=== PATIENT | male | born 1980 | race Hispanic/Latino ===

== ENCOUNTER 2016-06-11 12:45 | Emergency (ER) | payer OTHER ==
[2016-06-11 12:53] VITALS: BP 125/72; PULSE 79; RESP 20; O2SAT 98
--- NOTE | 2016-06-11 13:50 | ED.REPORT ---
HPI-Rash / Abscess Date of Service Jun 11, 2016 ED Provider: Maciej Alejandre MD A healthy 36 year old male presents to the ED from Urgent Care with right eye pain, redness, and swelling onset five days ago. At onset he was sweeping the floor at work when sawdust blew into his eye. He also reports chills and generalized myalgias today. Two days ago he was seen in clinic and was prescribed antibiotics. His symptoms have not improved since then. He denies nausea, vomiting, fever, or shortness of breath. He does not wear glasses or contacts. Nursing Notes Stated Complaint: POSSIBLE RIGHT EYE INFECTION/SENT FROM Chief Complaint: Eye Nursing Notes Reviewed: Yes Allergies: Coded Allergies: No Known Allergies (Unverified , 06/11/16) General Time Seen by MD: 13:50 Chief Complaint Other (Eye Pain, Redness, and Swelling) Hx Obtained From: Patient Arrived By: Walk-in Onset Occurred: 5 days ago Symptom Duration: Since onset Location: : Head/face (Eyes) Quality: Painful Severity: Current: Moderate Severity: Maximum: Moderate Associated with: Denies Fever Pertinent Negative: Relieved by nothing Recent Healthcare: Recent doctor visit Similar Sx Previous: No Past Medical History Past Medical History None reported Past Surgical History None reported Smoking History Unknown if Ever Smoker Ambulatory Status Independent Review of Systems Constitutional: Reports: Chills, Denies: Fever Eyes: Reports: Eye pain right, Redness right (and swelling) Respiratory: Denies: Shortness of breath GI: Denies: Nausea, Vomiting Musculoskeletal: Reports: Myalgia (Generalized) Physical Exam Physical Exam Notes: Initial Vital Signs Vital Signs (First) Date Time Temp Pulse Resp B/P Pulse Ox O2 Delivery O2 Flow Rate FiO2 06/11/16 12:53 37.3 79 20 125/72 98 Room Air Initial VS: Reviewed Neck: Supple, Full range of motion Respiratory: Breath sounds normal, Clear to auscultation, No respiratory distress Cardiovascular: Regular rate & rhythm, Heart sounds normal Neurologic: Alert, Oriented, Nonfocal Psychiatric: Mood/affect normal, Behavior normal, Normal thought content General/Constitutional: Awake, Alert Skin: Warm, Dry Head / Eyes: Atraumatic, Normocephalic, PERRL Acuity / Tonometry: Positive: Visual acuity abnormal R (20/80) Eye Movement: Positive: EOM painful Conjunctiva / Sclera: Positive: Chemosis R Right conjunctiva erythematous and swollen Right upper outer eyelid also significantly swollen with small that of purulent drainage. Interpretation & Diagnostics Lab Results Interpretation Result Diagram: 06/11/16 1500 06/11/16 1500 Test 06/11/16 15:00 White Blood Count 11.3th/mm3 (3.8-10.1) Red Blood Count 5.08mil/mm3 (4.40-5.80) Hemoglobin 14.9g/dL (13.8-17.2) Hematocrit 43.0% (41.0-50.0) Mean Corpuscular Volume 84.6fL (81-100) Mean Corpuscular Hemoglobin 29.3pg (27.0-35.0) Mean Corpuscular Hemoglobin Concent 34.7% (32.0-37.0) Red Cell Distribution Width 13.2% (12.3-15.4) Platelet Count 243bil/L (150-400) Neutrophils (%) (Auto) 64.9% (40-74) Lymphocytes (%) (Auto) 22.0% (14-46) Monocytes (%) (Auto) 11.2% (4-12) Eosinophils (%) (Auto) 0.9% (0-5) Basophils (%) (Auto) 0.4% (0-3) Sodium Level 139mEq/L (134-144) Potassium Level 4.2mEq/L (3.5-5.2) Chloride Level 98mEq/L (97-108) Carbon Dioxide Level 27mmol/L (18-29) Blood Urea Nitrogen 15mg/dL (6-20) Creatinine 0.79mg/dL (0.76-1.27) Estimat Glomerular Filtration Rate 119mL/min (>59) Glucose Level 87mg/dL (60-99) Calcium Level 9.4mg/dL (8.5-10.1) Total Bilirubin 0.6mg/dL (0.0-1.2) Aspartate Amino Transf (AST/SGOT) 21U/L (0-50) Alanine Aminotransferase (ALT/SGPT) 17U/L (0-44) Alkaline Phosphatase 100U/L (25-150) Total Protein 8.0g/dL (6.4-8.4) Albumin 4.6g/dL (3.4-5.0) Re-Eval/Medical Decision Re-Evaluation/Progress #1: Time of Eval: 15:07 Patient Status: Condition improved Re-Evaluation/Progress Note: Discussed with patient diagnosis and plan for discharge to ophthalmology. Follow-up and return to the ER instructions given. Patient agrees with plan for care and all questions were addressed. Re-Evaluation/Progress #2: Time of Eval: 15:54 Patient Status: Condition improved Re-Evaluation/Progress Note: Patient discharged. Consultation #1: Consulted With: Preschool Education Director Call Returned at: 14:47 Chucking Machine Set Up Operator: Will see in office (Today), Agrees with eval, Agrees with plan Note: Dr. Reji Belcher: Patient's case discussed. Consultation #2: Referral / Consult Name: Jose Luis Lyles MD Consulted With: Preschool Education Director Call Returned at: 17:42 Chucking Machine Set Up Operator: Agrees with eval, Agrees with plan Note: Discussed patient's case. Dr. Lyles saw the patient and recommends admission. He will instruct the patient to return to the ED. Culture was collected at the ophthalmology office sent back to the ER with the patient. Counseled Regarding: Diagnosis, Need for follow-up, When/why to return to ED Discharge & Departure Impression: Primary Impression: Orbital cellulitis Laterality: right Qualified Code: H05.011 - Cellulitis of right orbit Disposition: Home Discharge Condition All VS Reviewed: Yes Condition: Stable Patient Instructions: Orbital Cellulitis (ED) Additional Instructions: Go directly to the eye clinic for an examination this afternoon. They may ask you to return to the hospital for hospitalization. [employer] Ir directamente a la clnica del melany para un examen esta tarde. Pueden pedirle que regrese al hospital para hospitalizacin. Scribe Attestation Portions of this note were transcribed by Suzi Ricketts. I, Dr. Alejandre, personally performed the history, physical exam, and medical decision-making; I reviewed and confirmed the accuracy of the information in the transcribed note. Signed by: Marcel Wei, 06/11/2016, 15:26 Maciej Alejandre MD Jun 11, 2016 13:50 SUZI RICKETTS Jun 11, 2016 14:04
[2016-06-11] MEDS ORDERED: cefTRIAXone Inj 2 GM in IV Premix 1 EACH IV ONE (15:00)
[2016-06-11 15:23] LABS: BASOPHILS % (AUTO) 0.4 % (0-3); EOSINOPHILS % (AUTO) 0.9 % (0-5); MONOCYTES % (AUTO) 11.2 % (4-12); Mean Corpuscular Hemoglobin 29.3 pg (27.0-35.0); Mean Corpuscular Volume 84.6 fL (81-100); NEUTROPHILS % (AUTO) 64.9 % (40-74); Platelet Count 243 bil/L (150-400)
[2016-06-12] MEDS ORDERED: ERYT1OIN7 OD (01:14)
[2016-06-12] MEDS ORDERED: SULF1TAB7 PO (01:14)
== END 2016-06-11 16:12 | disposition home or self-care (01) ==
LOC: SED 12:45
DX: H05.011 Cellulitis of right orbit (principal); M79.1 Myalgia
CPT/HCPCS: 36415; 80053; 85025; 87040; 96365; 99284; J0696

== ENCOUNTER 2016-06-11 18:43 | Inpatient (IN) | payer OTHER ==
[~2016-06-11] VITALS: Ht 160 cm; Wt 59.2 kg
--- NOTE | 2016-06-11 18:26 | PCM.EDPN ---
ED Note Date of Service Jun 11, 2016 Please see my note from earlier today. Patient left the emergency department on his way to [facility] and Dr. Jose Luis Lyles. Prior to departure the patient had received Rocephin 2 g IV. He left with his IV in place. Blood cultures and laboratory data were collected prior to the patient's departure. I discussed the case with Dr. Lyles who agreed with the plan for hospitalization for presumptive orbital cellulitis. He is now return to the emergency department for said admission. Dr. Lyles said that he made arrangements with Dr. Trujillo to see the patient in the hospital as a design studio consultant. Dr. Lyles collected a culture from the eyelid and the patient brought it with him. Objective: Vital signs are as recorded. The patient appears identical to when he was discharged a few hours ago. He is in no distress. Assessment: Orbital cellulitis and eyelid abscess. Plan: Admit to the hospitalist service. I discussed the case with Dr. Ramirez who accepts the admit. Dr. Trujillo will be a design studio consultant. IV antibiotics ordered. Eye abscess culture pending Maciej Alejandre MD Jun 11, 2016 18:26
[~2016-06-11 18:43] MED LIST: 0.9% Sodium Chloride 1,000 ML IV ONE; Alum-Mag Hydrox-Simeth 30 mL Suspension PO PRN; HYDROcodone-APAP 5-325 mg Tablet PO PRN; Ondansetron 2 mg/mL 2 mL Inj IVPUSH PRN; Piperacillin-Tazo 3.375 Gm Inj 3.375 GM in Dextrose 5% Minibag Plus 50 ML IV ONE; metroNIDAZOLE Inj 500 MG in IV Premix 1 EACH IV ONE
[2016-06-11 18:57] VITALS: BP 116/72; PULSE 64; RESP 16; O2SAT 96
[2016-06-11] MEDS ORDERED: metroNIDAZOLE 500 mg/100 mL NS Premix IV ONE (19:21)
--- NOTE | 2016-06-11 20:08 | DRSVH ---
PROCEDURE: CT FACE WITH CONTRAST ([id number]) INDICATIONS: orbital cellulitis TECHNIQUE: After the administration of intravenous contrast, 3.0 mm axial sections acquired from the mid-neck to the frontal sinuses, with coronal reformatting. For radiation dose reduction, the following was use d: automated exposure control. COMPARISON: None. FINDINGS: Image quality: Excellent. Soft tissues: There is severe right facial soft tissue swelling, and periorbital edema. On image 39 series 2 possible focal fluid collection measuring 5 mm diameter, versus phlegmon. This is seen anter olateral to and adjacent to the right globe. No retro-orbital fluid collection Vascular: Visualized vascular structures appear patent throughout. Bony vascular foramina and canal s appear normal. Bones: Facial bones appear intact, without fractures, erosions, or destruction. Visualized portions of the skull base and auditory canals also appear normal. Sinuses: Paranasal sinuses are aerated without fluid levels, mucosal thickening, or mucoceles. Mast oid air cells are aerated. IMPRESSION: Severe right facial and periorbital soft tissue swelling/cellulitis. Possible small phlegmon versus e dany/developing abscess adjacent to the right globe as above Dictated by: David Hilliard M.D. on 06/11/2016 at 20:01 Approved by: David Hilliard M.D. on 06/11/2016 at 20:06
[2016-06-11 21:26] VITALS: BP 106/61; PULSE 54; RESP 18; O2SAT 99
--- NOTE | 2016-06-11 23:39 | NUR ---
ADMIT: Surinamese speaking only pt. arrived to [facility] from the ED. Right eye swollen and red, tight, closed shot. 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 Some sawdust fell in his right eye and became irritating, she scratched it due to itching, then became red, irritated, painful. He came to the ED, was sent to the eye Doctor (Dr. Mckinney) he drained pus from his right eye, and sent him home with antibiotics, the infection worsen and he came to the ED again. Denies pain at this time. States he was given po pain medication in the ED. A & O, very pleasant and cooperative with care.
[2016-06-11] MEDS ORDERED: Alum-Mag Hydrox-Simeth 30 mL Suspension PO PRN (23:55)
[2016-06-11] MEDS ORDERED: Polyethylene Glycol (PEG) 17 Gm Powder PO PRN (23:55)
[2016-06-11] MEDS ORDERED: Ondansetron 2 mg/mL 2 mL Inj IVPUSH PRN (23:55)
--- NOTE | 2016-06-12 00:20 | PCM.HPMED ---
Subjective Date of Service Jun 11, 2016 Primary Provider: Admitting Physician: Manas Ramirez MD Primary Care Physician: Nopcarmen Attending Physician: Manas Ramirez MD Chief Complaint: right eye swelling History of Present Illness: Patient is a 36 year old male that is presenting with a 3 day history of eye lid swelling, blurry vision and difficulty seeing. 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 Patient tried rubbing it out however it did not do much in terms of improving his symptoms. Patient noticed that it was becoming larger and more painful. Patient went to urgent care who prescribed him with erythromycin ointment, he applied it as directions stated however the patient was not having any resolution and in fact his eye was becoming more swollen. Patient came to the ED and fromt here the patient was evaluated by Dr Lyles (optho), who assessed the patient to have orbital cellulitis and eyelid abscess. Patient is currently stable and has no complaints. Patient will be admitted. Review of Systems: Patient has eyelid swelling and discomfort He does have increased lethargy and claims to feel feverish all other symptoms reviewed and were found to be negative. Allergies Coded Allergies: No Known Allergies (Unverified , 06/11/16) Home Medications none PMH none Surgical History none Family History non-contributory Social History Hx Alcohol Use: No Smoking Status: Unknown if Ever Smoker Exam Vital Signs Vital Sign - Last Date Time Temp Pulse Resp B/P Pulse Ox O2 Delivery O2 Flow Rate FiO2 06/11/16 21:26 36.4 54 18 106/61 99 Room Air Exam Gen: NAD. alert and oriented HEENT: Swelling of the righ eyelid with no isidro fluctuance, no discharge noted , tear noted with bleeding on the lateral aspect, vision is compromised secondary to irritation Cv: S1 and S2 noted, n murmurs, rubs or gallops Pulm: CTA bl, no wheezes or ronchi Abd: Soft nontender Ext: No swelling or deformity Neurol: no focal deficits noted Psych: Pt is answering questions appropriately Lab and Diagnostics X-Rays, CTs and MRIs PROCEDURE: CT FACE WITH CONTRAST ([id number]) INDICATIONS: orbital cellulitis TECHNIQUE: After the administration of intravenous contrast, 3.0 mm axial sections acquired from the mid-neck to the frontal sinuses, with coronal reformatting. For radiation dose reduction, the following was used: automated exposure control. COMPARISON: None. FINDINGS: Image quality: Excellent. Soft tissues: There is severe right facial soft tissue swelling, and periorbital edema. On image 39 series 2 possible focal fluid collection measuring 5 mm diameter, versus phlegmon. This is seen anterolateral to and adjacent to the right globe. No retro-orbital fluid collection Vascular: Visualized vascular structures appear patent throughout. Bony vascular foramina and canals appear normal. Bones: Facial bones appear intact, without fractures, erosions, or destruction. Visualized portions of the skull base and auditory canals also appear normal. Sinuses: Paranasal sinuses are aerated without fluid levels, mucosal thickening , or mucoceles. Mastoid air cells are aerated. IMPRESSION: Severe right facial and periorbital soft tissue swelling/cellulitis. Possible small phlegmon versus early/developing abscess adjacent to the right globe as above Assessment & Plan Patient is a 36 year old male that is presenting with orbital cellulitis. Patient had been working when a piece of sawdust went into his eye and since then he has developed an infection. Patient is currently stable orbital cellulitis - Patient has a recent history of foreign body that is now leading to an infection - Pt seen by optho who recommended admission and antibiotics - will start pt on vancomycin and ceftriaxone - Dr Trujillo will see the patient in the am - will obtain daily blood work DVT ppx via [facility] GI ppx not warranted Manas Ramirez MD Jun 11, 2016 23:51
[2016-06-12] MEDS: 0.9% Sodium Chloride 1,000 ML IV SCH ×3 (00:40→19:51)
[2016-06-12 01:10] VITALS: BP 109/62; PULSE 56; RESP 18; O2SAT 97
[2016-06-12] MEDS ORDERED: SULF1TAB7 PO (01:14)
[2016-06-12] MEDS ORDERED: ERYT1OIN7 OD (01:14)
--- NOTE | 2016-06-12 04:00 | PCM.CONPHA ---
Subjective Date of Service: Jun 12, 2016 Requesting Provider: Manas Ramirez MD Orbital cellulitis and eyelid abscess History of Present Illness swollen eye, blurry vision, and felt lethargy and feverish Reason for Pharmacy Consult: Vancomycin Dosing Objective Vital Signs Date Time Temp Pulse Resp B/P Pulse Ox O2 Delivery O2 Flow Rate FiO2 06/12/16 01:10 36.7 56 18 109/62 97 Room Air 06/11/16 21:26 36.4 54 18 106/61 99 Room Air 06/11/16 19:53 37.6 64 16 116/72 96 Room Air 06/11/16 18:57 37.6 64 16 116/72 96 Room Air Intake and Output 06/10/16 06/11/16 06/12/16 00:00 00:00 00:00 Intake Total 2150 ml Balance 2150 ml Weight (Kilograms): 59.090 Height (Feet): 5 Height (Inches): 3.00 Assessment/Plan Assessment/Plan A/ - 36 y/o male admitted in late last night for worsening infection on his right eye, orbital cellulitis and eyelid abscess, which had been treated last 3 days with erythromycin ointment and po Bactrim DS. He is NPO and planned to have I&D in the morning - Afebrile. WBC: 11.3, blood cultures: pending - In ED, patient received one time dose of Zosyn and Flagyl - Current wt: 59 kg, ht: 160 cm, SCr: 0.79 mg/dL, estimated clearance (ABW) ~ 109 ml/min, t1/2 ~ 7 hrs; BMI: 23 kg/m2, Vd ~ 41L - Target trough: 10-15 P/ - Give one time loading dose Vancomycin 1.25G iv @0200. No dose and trough level ordered at this time, but if the therapy to be continued, recommend Vancomycin 1 G iv q12, this regimen would produce a trough around 12-13. - Floor pharmacist will follow up in the morning Thank you for consulting clinical pharmacy Jack De León, CatalinaD, [facility] Marie De León Jun 12, 2016 04:00
[2016-06-12 04:42] VITALS: BP 100/56; PULSE 56; RESP 16; O2SAT 99
[2016-06-12 06:01] LABS: BASOPHILS % (AUTO) 0.6 % (0-3); EOSINOPHILS % (AUTO) 3.2 % (0-5); MONOCYTES % (AUTO) 11.7 % (4-12); Mean Corpuscular Hemoglobin 29.4 pg (27.0-35.0); Mean Corpuscular Volume 85.7 fL (81-100); Platelet Count 207 bil/L (150-400)
[2016-06-12 06:17] LABS: Magnesium 2.1 mg/dL (1.6-2.6)
[2016-06-12] MEDS: Vancomycin Dose per Pharmacist XX SCH (08:21)
[2016-06-12] MEDS ORDERED: cefTRIAXone Inj 1,000 MG in Dextrose 5% Minibag Plus 50 ML IV SCH (08:30)
[2016-06-12] MEDS ORDERED: Influenza (Adult) Vaccine 0.5 mL Syringe IM ONE (08:30)
[2016-06-12] MEDS ORDERED: cefTRIAXone Inj 2 GM in IV Premix 1 EACH IV SCH (08:30)
[2016-06-12] MEDS ORDERED: cefTRIAXone Inj 2,000 MG in Dextrose 5% Minibag Plus 50 ML IV SCH (08:30)
[2016-06-12 09:03] VITALS: BP 100/61; PULSE 53; RESP 16; O2SAT 100
[2016-06-12] MEDS: oxyCODONE-Acetamin 5-325 mg Tablet PO PRN ×2 (09:38→20:39)
[2016-06-12] MEDS ORDERED: Vancomycin Inj 1,000 MG in IV Premix 1 EACH IV SCH (14:00)
[2016-06-12 14:08] VITALS: BP 107/65; PULSE 55; RESP 16; O2SAT 99
--- NOTE | 2016-06-12 14:10 | PCM.PHAPRO ---
Progress Date of Service: Jun 12, 2016 vancomycin dosing Pharmacy Kinetic Dosing Vancomycin Indication: Orbital cellulitis and eyelid abscess Vanc goal trough: 10-15 mcg/mL Pt wt:59.09 kg Other ABX: CEFTRIAXONE 1G Q24H Cultures: Blood PENDING SCr: 94.29 mg/dL Assessment/Plan: - Loading dose of Vancomycin 1250 mg given in ED for (20mg/kg dosing) -Will continue Vancomycin 1000 mg Q12H (15 mg/kg dosing) with trough scheduled prior to 4th dose on 06/13/16 @1330 Pharmacy appreciates consult and will continue to monitor. Annmarie Hernandez PharmD Jun 12, 2016 14:10
--- NOTE | 2016-06-12 15:38 | CONS ---
[address] [address] CONSULTATION REPORT PATIENT: DAVION BLACKMAN : 1980 MR#: [id number] ADMIT: 06/11/2016 JOB ID: [id number] DATE OF SERVICE: 06/12/2016 INFECTIOUS DISEASE CONSULTATION: I thank Dr. Lepe for this timely consult. REASON FOR CONSULT: Right periorbital cellulitis with possible early periorbital abscess. HISTORY OF PRESENT ILLNESS: The patient is a 36-year-old gentleman who came here from [facility] three years ago. 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 He rubbed it and did not think much of it. Thereafter he developed swelling and tenderness around the eye. He was seen in an outpatient setting and given some ointment which did not seem to help much, and over the past three days or so his eye became much more red, swollen and somewhat tender. He was seen by an radiologic therapist who diagnosed with orbital cellulitis and eyelid abscess and sent him for admission. The patient tells me that he has not had fevers or chills throughout any of this nor has he had sweats. He does not have headache and he denies any preceding history of sinusitis. He notes that he still has vision in his right eye and he is able to move the right eye back and forth but it is a bit painful when he does so. He denies any sore throat, trouble swallowing or pulmonary symptoms. PAST MEDICAL HISTORY: Is basically negative in this healthy young man. SOCIAL HISTORY: He does not drink alcohol and does not currently smoke cigarettes. FAMILY HISTORY: Negative to the best of his knowledge. REVIEW OF SYSTEMS: The patient has no headache. He denies preceding sinus symptoms or a cold. No sore throat. No cough, shortness of breath or chest pain. No nausea, vomiting or diarrhea. No dysuria. No problems with his arms or legs and he has no neurologic symptoms.All others negative PHYSICAL EXAMINATION: Reveals a healthy young gentleman, temperature 36.3. He had a low-grade fever of 37.6 perhaps in the ED. Pulse in the 50s, respiratory rate in the 10s, blood pressure 117/65. He is saturating 99% on room air. He is awake and alert. Primarily Norwegian speaking. No head trauma. No sinus tenderness. His right eye is grossly erythematous across the conjunctiva. There is surrounding mild tenderness and edema of the eyelid as well as the periorbital tissues in general. This does not extend down onto the face significantly. The area is slightly tender, slightly warm and erythematous. There is no drainage. His extraocular movements are intact and his vision is likewise reasonable out of that right eye. Oral cavity without thrush or pharyngitis. Neck is supple. There is no adenopathy. His lungs are clear. His cardiac tones regular rate and rhythm without murmur. His abdomen is soft and nontender. There is no organomegaly. He does not have a Hudson catheter. Does not have suprapubic tenderness. He does not have effusions or swelling of any joints. He does not have skin rash except around his eye. Neurologically, he is intact. LABORATORIES: Include a white count of 6300. His creatinine is 0.88. Swab was done from the eye. This got a few polys and no organisms. I do not see a MRSA swab at this point, and I will be ordering one. IMAGING: Of the face showed severe right facial and periorbital cellulitis. There was a possible early abscess developing adjacent to the right lobe which was about 5 mm. IMPRESSION: This patient has an impressive right orbital cellulitis with a possible early very small right orbital abscess. His current antibiotics include ceftriaxone and vancomycin while I think he also appears to have received at least one dose of Flagyl. I think these are reasonable agents but at this point, I think I would be inclined to continue with a combination of vanco and Unasyn as an optimal regimen. It is also notable that this patient's orbital cellulitis started after a foreign body was stuck in his eye accidentally at work given that he works at a dairy farm. This certainly raises the possibility of some unusual pathogens and we will have to watch this patient very closely for evidence of improvement with good follow up from our ophthalmologic colleagues to make sure there is a good result here. How long the patient will need to be treated will depend a bit on whether or not he does have an orbital abscess versus just an orbital cellulitis. It is likely a prolonged period of IV therapy will be indicated in any event. RECOMMENDATIONS: 1. I would discontinue the ceftriaxone, Zosyn, Flagyl he has been receiving intermittently since his admission and substitute just Unasyn. 2. I would continue with vanco. 3. Will need a MRSA swab of the nares to help reduce the possibility of MRSA as this can be found in these periorbital infections and can be quite severe. Thank you very much for allowing me to see this patient in consult. AUGUSTIN
--- NOTE | 2016-06-12 16:19 | NUR ---
ACTIVITY Percocet 1 tab PO has been effective for pain control. Tolerating liquids PO and his diet well. Denies nausea. No emesis noted. Denies SOB. Voiding without any problems. Ambulating independently in the room. Gait is steady. MRSA nasal swab specimen was sent to the lab.
[2016-06-12] MEDS: Ampicillin-Sulbactam Inj 3,000 MG in 0.9% Sodium Chloride 100 ML IV SCH ×2 (16:58→20:39)
[2016-06-12 18:49] VITALS: BP 106/57; PULSE 58; RESP 16; O2SAT 97
[2016-06-12 21:04] VITALS: BP 109/62; PULSE 65; RESP 18; O2SAT 96
--- NOTE | 2016-06-12 22:11 | PCM.PNMED ---
Subjective Date of Service Jun 12, 2016 Subjective Patient was seen with a hospital leg man. He states he Is feeling a little bit better. The vision in his right eye is not affected by his current infection. His pain is controlled. Exam Vital Signs Vital Sign - Last Date Time Temp Pulse Resp B/P Pulse Ox O2 Delivery O2 Flow Rate FiO2 06/12/16 21:04 36.7 65 18 109/62 96 Room Air Intake and Output 06/11/16 06/11/16 06/12/16 Cumulative From/Thru 15:00 23:00 07:00 06/11/16 18:45 - 06/12/16 06:18 Intake Total 1150 ml 2029 ml 3179 ml Balance 1150 ml 2029 ml 3179 ml Intake Oral 400 ml 400 ml IV Total 1150 ml 1629 ml 2779 ml # Voids 2 2 # Bowel Movements 0 0 Exam General: Patient is in no apparent distress. HEENT: Head is atraumatic normocephalic. Eyes: The right periorbital region is markedly edematous and erythematous. There is some inflammation of the right orbital area Pupils are equally round and reactive to light and accommodation. Extraocular muscles are intact. Sclera are white anicteric. Subconjunctival mucosa is pink. Ears and nose are unremarkable. Oropharynx: There is no mucosal lesions, there is no thrush, there is no pharyngitis. Neck: Is supple, there are no nodes, or masses or tenderness. Chest: Is clear to auscultation and percussion. There are no rales, rhonchi, wheezes or rubs. Heart: Rate, rhythm is regular. There is no murmur, rub or gallop. Abdomen: Good bowel sounds are present. Abdomen is soft, nontender, no organomegaly or masses were appreciated. Extremities: Are symmetrical and well perfused. There is no edema, there is no cellulitis, no rash. Neurologic: There are no focal neurological deficits. Cranial nerves II through XII are intact. There are no sensory or motor deficits. Psychiatric: Patients mood is calm and shows no sign of agitation. Genital: Deferred Rectal: Deferred Lab and Diagnostics Result Diagram: 06/12/16 0534 06/12/16 0534 Microbiology Name: DAVION BLACKMAN Age/Sex: 36/M Attend Dr: Manas Ramirez MD Acct: [id number] Unit: [id number] Status: ADM IN Location: [facility] [place] 1014-1 Re06/11/16 Disch: Specimen: [id number] Collected: 06/11/16- Status: RES Req#: [id number] Received: 06/12/16 Source: DRAINAGE Sp Desc : Subm Dr: Maciej Alejandre MD Ordered: CS & ANAC & GS Comments: Collected by Nurse/Unit? Y/N Y Comment: Right eyelid Procedure Result Verified Site Microbiology SAHARA GS (GRAM STAIN) Final 06/12/16 GRAM STAIN RESULT FEW POLYS NO ORGANISMS SEEN X-Rays, CTs and MRIs PROCEDURE: CT FACE WITH CONTRAST ([id number]) INDICATIONS: orbital cellulitis TECHNIQUE: After the administration of intravenous contrast, 3.0 mm axial sections acquired from the mid-neck to the frontal sinuses, with coronal reformatting. For radiation dose reduction, the following was used: automated exposure control. COMPARISON: None. FINDINGS: Image quality: Excellent. Soft tissues: There is severe right facial soft tissue swelling, and periorbital edema. On image 39 series 2 possible focal fluid collection measuring 5 mm diameter, versus phlegmon. This is seen anterolateral to and adjacent to the right globe. No retro-orbital fluid collection Vascular: Visualized vascular structures appear patent throughout. Bony vascular foramina and canals appear normal. Bones: Facial bones appear intact, without fractures, erosions, or destruction. Visualized portions of the skull base and auditory canals also appear normal. Sinuses: Paranasal sinuses are aerated without fluid levels, mucosal thickening , or mucoceles. Mastoid air cells are aerated. IMPRESSION: Severe right facial and periorbital soft tissue swelling/cellulitis. Possible small phlegmon versus early/developing abscess adjacent to the right globe as above Assessment & Plan Patient is a 36 year old male that is presenting with orbital cellulitis. Patient had been working when a piece of sawdust went into his eye and since then he has developed an infection. Patient is currently stable Orbital cellulitis - Patient has a recent history of foreign body that is now leading to an infection - Patient was seen by ophthalmology who recommended admission and antibiotics - Patient was started on vancomycin and ceftriaxone and Flagyl initially -Dr. Olivares of infectious disease saw the patient today and recommended that the patient be on vancomycin and Unasyn. He also recommended that the patient have a nasal swab for MRSA. - Dr Trujillo of ophthalmology is to consult on the patient. My concern is the presence of a possible phlegmon just lateral to the eyeball. -We will obtain daily blood work DVT ppx via lovenox GI ppx not warranted Pain Evaluation: Adequate Pain Control VTE Mechanical Devices: Intermittant Pneumatic CD Resuscitation Status: CPR: Attempt Resuscitation Akash Lepe MD Jun 12, 2016 22:11
[2016-06-13 00:41] VITALS: BP 105/58; PULSE 62; RESP 20; O2SAT 99
--- NOTE | 2016-06-13 01:43 | NUR ---
Activity Patient A&OX3, and pleasant this evening. Industrial Equipment Mechanic used to assess patient status. Patient states 6/10 eye pain, and 1 tab Percocet PO has been given. Upon reassessment patient states relief. IV has NS @ 100 cc/hr running, with intermittent abx administration. Patient remains independent to the BRM. Patient is currently sleeping and appears comfortable. Will continue to monitor, and continue Q1 hour checks.
[2016-06-13] MEDS ORDERED: Vancomycin Inj 1,000 MG in IV Premix 1 EACH IV SCH (02:00)
[2016-06-13] MEDS: 0.9% Sodium Chloride 1,000 ML IV SCH ×2 (03:53→15:01)
[2016-06-13] MEDS: Ampicillin-Sulbactam Inj 3,000 MG in 0.9% Sodium Chloride 100 ML IV SCH ×4 (03:53→20:50)
[2016-06-13 04:33] VITALS: BP 105/58; PULSE 73; RESP 20; O2SAT 98
[2016-06-13 06:09] LABS: BASOPHILS % (AUTO) 0.8 % (0-3); EOSINOPHILS % (AUTO) 5.8 % (0-5); MONOCYTES % (AUTO) 11.7 % (4-12); Mean Corpuscular Hemoglobin 29.2 pg (27.0-35.0); Mean Corpuscular Volume 87.4 fL (81-100); NEUTROPHILS % (AUTO) 46.9 % (40-74); Platelet Count 204 bil/L (150-400)
[2016-06-13 06:30] LABS: Magnesium 1.8 mg/dL (1.6-2.6)
[2016-06-13] MEDS: Vancomycin Dose per Pharmacist XX SCH (07:24)
[2016-06-13] MEDS: oxyCODONE-Acetamin 5-325 mg Tablet PO PRN ×2 (07:29→15:07)
[2016-06-13] MEDS: Pantoprazole 40 mg ER24 Tablet PO SCH (07:29)
[2016-06-13 08:43] LABS: ERYTHROCYTE SEDIMENTATION RATE 36 mm/hr (0-15)
[2016-06-13] MEDS ORDERED: Vancomycin Serum Trough XX ONE (13:30)
[2016-06-13 14:40] VITALS: BP 109/56; PULSE 60; RESP 18; O2SAT 100
--- NOTE | 2016-06-13 14:47 | PCM.PHAPRO ---
Progress Date of Service: Jun 13, 2016 vancomycin dosing Pharmacy Kinetic Dosing Vancomycin Indication: Orbital cellulitis and eyelid abscess Vanc goal trough: 10-15 mcg/mL Pt wt:59.09 kg Other ABX: UNASYN 3 G Q6H Cultures: Blood PENDING CrCl: 92.20 mg/dL Assessment/Plan: - Loading dose of Vancomycin 1250 mg given in ED for (20mg/kg dosing) -Trough came back today prior to 4th dose at 7.3 which is below goal range of 10 -15. Per infectious disease recommendations will continue vancomycin until cultures back tomorrow but will increase dose to 1250 mg Q12H (20 mg/kg dosing). New trough level ordered for 06/15/16 @1330 which is prior to 5th dose instead of the 4th dose in order to avoid waking the patient up at 0130 in the morning. Pharmacy appreciates consult and will continue to monitor. Annmarie Hernandez PharmD Jun 13, 2016 14:47
--- NOTE | 2016-06-13 15:05 | PROG NOTE ---
[address] [address] PROGRESS NOTE PATIENT: DAVION BLACKMAN : 1980 MR#: [id number] ADMIT: 06/11/2016 JOB ID: [id number] DATE: 06/13/2016 INFECTIOUS DISEASE FOLLOWUP NOTE: REASON FOR FOLLOWUP: Right orbital cellulitis. INTERVAL HISTORY: Overnight, the patient reports he is much better. He states that the pain and swelling in the right eye has diminished about 50% overnight. He still has a little bit of pain with lateral motion but it is much improved. No fevers, chills, or sweats. No cough, shortness of breath, chest pain, nausea, or vomiting. He reports no blurry vision at this point. PHYSICAL EXAMINATION: Reveals an afebrile gentleman, in no acute distress. He has not been febrile during this admission. Temp 36.8, pulse 60, respiratory rate 18, blood pressure 109/56, saturating 100% on room air. Examination of the right eye reveals that there is still orbital cellulitis but it has faded considerably overnight. There is essentially no tenderness now around the erythematous ring which surrounds the orbit. There is no significant involvement of the eyelid at this point. Extraocular movements and vision are completely normal. Oral cavity without any abnormality. Sinuses nontender. Lungs clear. Abdomen benign. LABORATORIES: Include a white count of 4800, platelet count 204 creatinine 0.9. Micro studies include a swab from the eye which is growing Staph aureus with susceptibilities pending. IMAGING: No new imaging since the CT done the night before last. 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 He has obvious infection around the right eye with a straightforward orbital cellulitis, though I question if there was a possible phlegmon seen on the CT which could be a developing orbital abscess that will require close followup. At this point he is improving but we still do not know if this is MSSA or MRSA as the primary culprit. RECOMMENDATIONS: 1. I would continue with vancomycin and Unasyn. 2. I will continue with these antibiotics and await the susceptibilities. Depending on antibiotic susceptibilities, he might be a candidate for discharge in the reasonably near future, and one agent that could be useful here is oral linezolid for two weeks or so, rather than IV therapy, but the patient will require ophthalmologic evaluation to clear him with respect to the orbital abscess before any final decision is made.
--- NOTE | 2016-06-13 15:18 | NUR ---
Social Work Screen Note: patient is a 36 year old male admitted on 06/11/16 for orbital cellulitis. Patient payer as [employer]. Patient emergency contact as Alec Bess, . Patient resides in [facility] and ambulating and independent with needs. Per report in rounds ID following. SW to follow for IV abx plans. MRSA screen pending. No anticipated discharge needs identified at this time. SW to follow PLAN: Home via POV, pending clinical course. Onelia Camarillo
--- NOTE | 2016-06-13 17:09 | NUR ---
PAIN/ACTIVITY Percocet 1 tab PO has been effective for pain control. Tolerating liquids PO and his diet well. Denies nausea. No emesis noted. Denies SOB. Patient has been ambulating independently in the room. Gait is steady. Voiding without any problems. Patient stated that he had several loose stools yesterday and today. Will send specimen to the the lab [facility]
[2016-06-13 20:59] VITALS: BP 117/67; PULSE 58; RESP 18; O2SAT 95
--- NOTE | 2016-06-13 23:01 | PCM.PNMED ---
Subjective Date of Service Jun 13, 2016 Subjective Patient is feeling a little bit better today as a swelling in his right eye has markedly improved. Exam Vital Signs Vital Sign - Last Date Time Temp Pulse Resp B/P Pulse Ox O2 Delivery O2 Flow Rate FiO2 06/13/16 20:59 36.7 58 18 117/67 95 Room Air Intake and Output 06/12/16 06/12/16 06/13/16 Cumulative From/Thru 15:00 23:00 07:00 06/11/16 18:45 - 06/13/16 06:22 Intake Total 2642 ml 2112 ml 7933 ml Output Total 700 ml 700 ml Balance 1942 ml 2112 ml 7233 ml Intake Oral 1400 ml 800 ml 2600 ml IV Total 1242 ml 1312 ml 5333 ml Output Urine Total 700 ml 700 ml # Voids 2 4 # Bowel Movements 0 0 Exam General: Patient is in no apparent distress. HEENT: Head is atraumatic normocephalic. Eyes: The right periorbital region and eyelid inflammation is markedly improved. Pupils are equally round and reactive to light and accommodation. Extraocular muscles are intact. Sclera are less inflamed and injected. Anicteric. Subconjunctival mucosa is less inflamed and pink. Ears and nose are unremarkable. Oropharynx: There is no mucosal lesions, there is no thrush, there is no pharyngitis. Neck: Is supple, there are no nodes, or masses or tenderness. Chest: Is clear to auscultation and percussion. There are no rales, rhonchi, wheezes or rubs. Heart: Rate, rhythm is regular. There is no murmur, rub or gallop. Abdomen: Good bowel sounds are present. Abdomen is soft, nontender, no organomegaly or masses were appreciated. Extremities: Are symmetrical and well perfused. There is no edema, there is no cellulitis, no rash. Neurologic: There are no focal neurological deficits. Cranial nerves II through XII are intact. There are no sensory or motor deficits. Psychiatric: Patients mood is calm and shows no sign of agitation. Genital: Deferred Rectal: Deferred Lab and Diagnostics Result Diagram: 06/13/16 0515 06/13/16 0515 Microbiology Name: DAVION BLACKMAN Age/Sex: 36/M Attend Dr: Manas Ramirez MD Acct: [id number] Unit: [id number] Status: ADM IN Location: [facility] [place] 1014-1 Re06/11/16 Disch: Specimen: [id number] Collected: 06/11/16-UNK Status: RES Req#: [id number] Received: 06/12/16 Source: DRAINAGE Sp Desc : Subm Dr: Maciej Alejandre MD Ordered: CS & ANAC & GS Comments: Collected by Nurse/Unit? Y/N Y Comment: Right eyelid Procedure Result Verified Site Microbiology SAHARA GS (GRAM STAIN) Final 06/12/16 GRAM STAIN RESULT FEW POLYS NO ORGANISMS SEEN SAHARA CULT AEROBIC Preliminary 06/13/16-1029 PRELIMINARY ID STAPH, PROBABLE STAPH AUREUS SUSCEPTIBILITIES TO FOLLOW COLONY COUNT/QUANTITY SCANT GROWTH X-Rays, CTs and MRIs PROCEDURE: CT FACE WITH CONTRAST ([id number]) INDICATIONS: orbital cellulitis TECHNIQUE: After the administration of intravenous contrast, 3.0 mm axial sections acquired from the mid-neck to the frontal sinuses, with coronal reformatting. For radiation dose reduction, the following was used: automated exposure control. COMPARISON: None. FINDINGS: Image quality: Excellent. Soft tissues: There is severe right facial soft tissue swelling, and periorbital edema. On image 39 series 2 possible focal fluid collection measuring 5 mm diameter, versus phlegmon. This is seen anterolateral to and adjacent to the right globe. No retro-orbital fluid collection Vascular: Visualized vascular structures appear patent throughout. Bony vascular foramina and canals appear normal. Bones: Facial bones appear intact, without fractures, erosions, or destruction. Visualized portions of the skull base and auditory canals also appear normal. Sinuses: Paranasal sinuses are aerated without fluid levels, mucosal thickening , or mucoceles. Mastoid air cells are aerated. IMPRESSION: Severe right facial and periorbital soft tissue swelling/cellulitis. Possible small phlegmon versus early/developing abscess adjacent to the right globe as above Assessment & Plan Patient is a 36 year old male that is presenting with orbital cellulitis. Patient had been working when a piece of sawdust went into his eye and since then he has developed an infection. Patient is currently stable Orbital cellulitis and upper lid abscess status post drainage by Dr. Mcbride. The inflammation is markedly improved - Patient has a recent history of foreign body that is now leading to an infection - Patient was seen by ophthalmology who recommended admission and antibiotics - Patient was started on vancomycin and ceftriaxone and Flagyl initially -Dr. Olivares of infectious disease saw the patient and recommended that the patient be on vancomycin and Unasyn. He also recommended that the patient have a nasal swab for MRSA. - Dr Trujillo of ophthalmology is to consult on the patient. My concern is the presence of a possible phlegmon just lateral to the eyeball. Therefore, Dr. Trujillo saw the patient today on 06/13/2016. He believes it there is no need for further intervention and will check on the patient again in 2016. O performed a slit lamp examination and was pleased with the patient's improvement and progress. -We will obtain daily blood work DVT ppx via lovenox GI ppx not warranted Pain Evaluation: Adequate Pain Control VTE Mechanical Devices: Intermittant Pneumatic CD Resuscitation Status: CPR: Attempt Resuscitation Akash Lepe MD Jun 13, 2016 23:01
[2016-06-14 01:29] VITALS: BP 106/61; PULSE 61; RESP 16; O2SAT 98
[2016-06-14] MEDS: 0.9% Sodium Chloride 1,000 ML IV SCH ×3 (01:59→20:16)
[2016-06-14] MEDS: Ampicillin-Sulbactam Inj 3,000 MG in 0.9% Sodium Chloride 100 ML IV SCH ×4 (02:00→20:16)
--- NOTE | 2016-06-14 03:02 | NUR ---
ACTIVITY Patient rested quietly throughout majority of shift. Denies CP, SOB, Nausea, and Pain at this time. Tolerating antibiotic with no noted ASE. Mobile block out machine operator stick utilized, for assessment and explanation of care.
[2016-06-14 05:35] VITALS: BP 135/70; PULSE 59; RESP 20; O2SAT 97
[2016-06-14 06:09] LABS: BASOPHILS % (AUTO) 1.1 % (0-3); EOSINOPHILS % (AUTO) 5.6 % (0-5); MONOCYTES % (AUTO) 10.5 % (4-12); Mean Corpuscular Hemoglobin 29.6 pg (27.0-35.0); NEUTROPHILS % (AUTO) 47.4 % (40-74); Platelet Count 223 bil/L (150-400)
[2016-06-14 06:21] LABS: Magnesium 1.8 mg/dL (1.6-2.6)
[2016-06-14 07:23] LABS: ERYTHROCYTE SEDIMENTATION RATE 12 mm/hr (0-15)
[2016-06-14] MEDS: Vancomycin Dose per Pharmacist XX SCH (08:30)
[2016-06-14] MEDS: Pantoprazole 40 mg ER24 Tablet PO SCH (10:24)
[2016-06-14 12:58] VITALS: BP 117/68; PULSE 67; RESP 18; O2SAT 99
--- NOTE | 2016-06-14 19:01 | NUR ---
No Pain/Abx Pt denied pain all shift and tolerated IV abx without issue. IV infusing Vanco at this time - care continues.
[2016-06-14 21:06] VITALS: BP 113/69; PULSE 62; RESP 18; O2SAT 95
--- NOTE | 2016-06-14 23:22 | PCM.PNMED ---
Subjective Date of Service Jun 14, 2016 Subjective Patient was seen with the foreign language interpreter Rae from the tele[employer] foreign language interpreter company. Patient is feeling much better. He has less pain and inflammation in the right periorbital area. Exam Vital Signs Vital Sign - Last Date Time Temp Pulse Resp B/P Pulse Ox O2 Delivery O2 Flow Rate FiO2 06/14/16 21:06 36.8 62 18 113/69 95 Room Air Intake and Output 06/13/16 06/13/16 06/14/16 Cumulative From/Thru 15:00 23:00 07:00 06/11/16 18:45 - 06/14/16 05:59 Intake Total 2409 ml 2361 ml 88522 ml Output Total 1650 ml 1750 ml 4100 ml Balance 759 ml 611 ml 8603 ml Intake Oral 1158 ml 1036 ml 4794 ml IV Total 1251 ml 1325 ml 7909 ml Output Urine Total 1650 ml 1750 ml 4100 ml # Voids 2 6 # Bowel Movements 1 0 1 Exam General: Patient is in no apparent distress. HEENT: Head is atraumatic normocephalic. Eyes: The right periorbital region and eyelid inflammation continues to show improvement. Pupils are equally round and reactive to light and accommodation. Extraocular muscles are intact. Sclera are less inflamed and injected. Anicteric. Subconjunctival mucosa is less inflamed and pink. Ears and nose are unremarkable. Oropharynx: There is no mucosal lesions, there is no thrush, there is no pharyngitis. Neck: Is supple, there are no nodes, or masses or tenderness. Chest: Is clear to auscultation and percussion. There are no rales, rhonchi, wheezes or rubs. Heart: Rate, rhythm is regular. There is no murmur, rub or gallop. Abdomen: Good bowel sounds are present. Abdomen is soft, nontender, no organomegaly or masses were appreciated. Extremities: Are symmetrical and well perfused. There is no edema, there is no cellulitis, no rash. Neurologic: There are no focal neurological deficits. Cranial nerves II through XII are intact. There are no sensory or motor deficits. Psychiatric: Patients mood is calm and shows no sign of agitation. Genital: Deferred Rectal: Deferred Lab and Diagnostics Result Diagram: 06/14/16 0540 06/14/16 0540 Microbiology Name: DAVION BLACKMAN Age/Sex: 36/M Attend Dr: Manas Ramirez MD Acct: [id number] Unit: [id number] Status: ADM IN Location: [facility] [place] 1014-1 Re06/11/16 Disch: Specimen: [id number] Collected: 06/12/16 Status: COMP Req#: [id number] Received: 06/12/16 Source: NOSE Sp Desc : GEL SWAB Subm Dr: Sky Olivares MD Ordered: MRSAC Comments: Collected by Nurse/Unit? Y/N Y Procedure Result Verified Site Microbiology SAHARA CULT NASAL MRSA SCREEN Final 06/14/16 Organism 1 SCREEN POSITIVE FOR MRSA Specimen: [id number] Collected: 06/11/16 Status: RES Req#: [id number] Received: 06/12/16 Source: DRAINAGE Sp Desc : Subm Dr: Maciej Alejandre MD Ordered: CS & ANAC & GS Comments: Collected by Nurse/Unit? Y/N Y Comment: Right eyelid Procedure Result Verified Site Microbiology SAHARA GS (GRAM STAIN) Final 06/12/16 GRAM STAIN RESULT FEW POLYS NO ORGANISMS SEEN SAHARA CULT AEROBIC Preliminary 06/14/16 Organism 1 METHICILLIN RESISTANT S AUREUS COLONY COUNT/QUANTITY SCANT GROWTH METHICILLIN RESISTANT S AUREUS Resistance of staphylococci to OXACILLIN predicts resistance to (a) other beta-lactamase stable penicillins such as cloxacillin and dicloxacillin (b)B-lactam/B-lactamase inhibitor combinations such as augmentin and unasyn, (c)cephems such as Cephalexim and cefuroxime and (d)carbapenems such as imipenem and meropenem.(CLSI 2010 M100 S21) 1. METHICILLIN RESISTANT S AUREUS M.I.C Interp --------- ------ * CEFAZOLIN R * CLINDAMYCIN <=0.25 S * ERYTHROMYCIN >=8 R * LINEZOLID 2 S * OXACILLIN SAHARA >=4 R * RIFAMPIN <=0.5 S * TETRACYCLINE <=1 S * TRIMETHOPRIM/SULFAMETHOXAZOLE <=10 S * VANCOMYCIN 1 S ANAEROBIC CULTURE Preliminary 06/14/16 No ANAEROBES recovered at 48 hours hold for futher observation X-Rays, CTs and MRIs PROCEDURE: CT FACE WITH CONTRAST ([id number]) INDICATIONS: orbital cellulitis TECHNIQUE: After the administration of intravenous contrast, 3.0 mm axial sections acquired from the mid-neck to the frontal sinuses, with coronal reformatting. For radiation dose reduction, the following was used: automated exposure control. COMPARISON: None. FINDINGS: Image quality: Excellent. Soft tissues: There is severe right facial soft tissue swelling, and periorbital edema. On image 39 series 2 possible focal fluid collection measuring 5 mm diameter, versus phlegmon. This is seen anterolateral to and adjacent to the right globe. No retro-orbital fluid collection Vascular: Visualized vascular structures appear patent throughout. Bony vascular foramina and canals appear normal. Bones: Facial bones appear intact, without fractures, erosions, or destruction. Visualized portions of the skull base and auditory canals also appear normal. Sinuses: Paranasal sinuses are aerated without fluid levels, mucosal thickening , or mucoceles. Mastoid air cells are aerated. IMPRESSION: Severe right facial and periorbital soft tissue swelling/cellulitis. Possible small phlegmon versus early/developing abscess adjacent to the right globe as above Assessment & Plan Patient is a 36 year old male that is presenting with orbital cellulitis. Patient had been working when a piece of sawdust went into his eye and since then he has developed an infection. Patient is currently stable Orbital cellulitis and upper lid abscess secondary to MRSA status post drainage by Dr. Mcbride. The inflammation is markedly improved - Patient has a recent history of foreign body that is now leading to an infection - Patient was seen by ophthalmology who recommended admission and antibiotics - Patient was started on vancomycin and ceftriaxone and Flagyl initially -Dr. Olivares of infectious disease saw the patient and recommended that the patient be on vancomycin and Unasyn. He also recommended that the patient have a nasal swab for MRSA. Will discuss discontinuing Unasyn with Dr. Olivares. We will continue vancomycin IV for now - Dr Trujillo of ophthalmology has consulted on the patient. Dr. Trujillo saw the patient on 06/13/2016 and again today. He believes it there is no need for further intervention at this time. He also performed a slit lamp examination and was pleased with the patient's improvement and progress. -We will obtain daily blood work DVT ppx via lovenox GI ppx not warranted Pain Evaluation: Adequate Pain Control VTE Mechanical Devices: Intermittant Pneumatic CD Resuscitation Status: CPR: Attempt Resuscitation Akash Lepe MD Jun 14, 2016 23:22
[2016-06-15] MEDS: Ampicillin-Sulbactam Inj 3,000 MG in 0.9% Sodium Chloride 100 ML IV SCH ×4 (02:33→20:32)
[2016-06-15 04:46] VITALS: BP 106/65; PULSE 64; RESP 18; O2SAT 98
--- NOTE | 2016-06-15 04:49 | NUR ---
Activity Patient denies CP, SOB, Abdominal discomfort, however continues to have loose stools. Ambulates independently.
[2016-06-15 06:38] LABS: BASOPHILS % (AUTO) 1.2 % (0-3); EOSINOPHILS % (AUTO) 4.6 % (0-5); MONOCYTES % (AUTO) 9.7 % (4-12); Mean Corpuscular Hemoglobin 29.3 pg (27.0-35.0); Mean Corpuscular Volume 85.8 fL (81-100); NEUTROPHILS % (AUTO) 48.2 % (40-74); Platelet Count 222 bil/L (150-400)
[2016-06-15 07:01] LABS: Magnesium 2.1 mg/dL (1.6-2.6)
[2016-06-15 07:39] LABS: ERYTHROCYTE SEDIMENTATION RATE 12 mm/hr (0-15)
[2016-06-15] MEDS: Vancomycin Dose per Pharmacist XX SCH (07:40)
[2016-06-15] MEDS: Pantoprazole 40 mg ER24 Tablet PO SCH (07:48)
[2016-06-15] MEDS: 0.9% Sodium Chloride 1,000 ML IV SCH ×2 (07:48→20:31)
[2016-06-15 08:54] VITALS: BP 111/63; PULSE 71; RESP 16; O2SAT 98
[2016-06-15 12:25] VITALS: BP 114/69; PULSE 59; RESP 16; O2SAT 97
[2016-06-15] MEDS ORDERED: Vancomycin Serum Trough XX ONE (13:30)
--- NOTE | 2016-06-15 14:52 | PCM.PHAPRO ---
Progress vancomycin dosing VANCOMYCIN PER PHARMACY- MONITORING 06/15 TROUGH: 10 Cultures positive for MRSA Renal function stable. Will continue vancomycin 1.25 q12h. Pharmacy will continue monitoring renal function. Ibrahima Carter, PharmD Ibrahima Carter Jun 15, 2016 14:52
--- NOTE | 2016-06-15 16:36 | NUR ---
ACTIVITY Patient rated the pain in his R eye as 0-2/10. He did not want any pain medication at this time. Tolerating liquids PO and his diet well. Denies nausea. No emesis noted. Denies SOB. Patient has been ambulating independently in the room. Gait is steady. Redness and swelling in his R eye has significantly improved since admit. Patient is able to open his R eye without any pain. Contact precautions still ongoing.
[2016-06-15 20:30] VITALS: BP 118/71; PULSE 69; RESP 18; O2SAT 96
--- NOTE | 2016-06-15 21:10 | PCM.PNMED ---
Subjective Date of Service Jun 15, 2016 Subjective The patient was seen with a patella freelance interpreter/translator "Igor" who helped interpret for me. The patient is clearly feeling much better and he has no problems with his vision. The right orbit pain and inflammation is markedly improved. He does complain of diarrhea however. He has no other new complaints. Exam Vital Signs Vital Sign - Last Date Time Temp Pulse Resp B/P Pulse Ox O2 Delivery O2 Flow Rate FiO2 06/15/16 12:25 36.6 59 16 114/69 97 Room Air Intake and Output 06/14/16 06/14/16 06/15/16 Cumulative From/Thru 15:00 23:00 07:00 06/11/16 18:45 - 06/15/16 05:58 Intake Total 3024 ml 800 ml 44561 ml Output Total 1050 ml 1000 ml 6150 ml Balance 1974 ml -200 ml 80930 ml Intake Oral 1472 ml 800 ml 7066 ml IV Total 1552 ml 9461 ml Output Urine Total 1050 ml 1000 ml 6150 ml # Voids 6 # Bowel Movements 0 1 Exam General: Patient is in no apparent distress. HEENT: Head is atraumatic normocephalic. Eyes: The right periorbital region and eyelid inflammation is markedly improved. Pupils are equally round and reactive to light and accommodation. Extraocular muscles are intact. Sclera continue to be less inflamed and injected. Anicteric. Subconjunctival mucosa is less inflamed and pink. Ears and nose are unremarkable. Oropharynx: There is no mucosal lesions, there is no thrush, there is no pharyngitis. Neck: Is supple, there are no nodes, or masses or tenderness. Chest: Is clear to auscultation and percussion. There are no rales, rhonchi, wheezes or rubs. Heart: Rate, rhythm is regular. There is no murmur, rub or gallop. Abdomen: Good bowel sounds are present. Abdomen is soft, nontender, no organomegaly or masses were appreciated. Extremities: Are symmetrical and well perfused. There is no edema, there is no cellulitis, no rash. Neurologic: There are no focal neurological deficits. Cranial nerves II through XII are intact. There are no sensory or motor deficits. Psychiatric: Patients mood is calm and shows no sign of agitation. Genital: Deferred Rectal: Deferred Lab and Diagnostics Result Diagram: 06/15/1661406/15/16614 Microbiology Name: DAVION BLACKMAN Age/Sex: 36/M Attend Dr: Manas Ramirez MD Acct: [id number] Unit: [id number] Status: ADM IN Location: [facility] [place]4-1 Re06/11/16 Disch: Specimen: [id number] Collected: 06/12/16 Status: COMP Req#: [id number] Received: 06/12/16 Source: NOSE Sp Desc : GEL SWAB Subm Dr: Sky Olivares MD Ordered: MRSAC Comments: Collected by Nurse/Unit? Y/N Y Procedure Result Verified Site Microbiology SAHARA CULT NASAL MRSA SCREEN Final 06/14/16 Organism 1 SCREEN POSITIVE FOR MRSA Specimen: [id number] Collected: 06/11/16- Status: RES Req#: [id number] Received: 06/12/16 Source: DRAINAGE Sp Desc : Subm Dr: Maciej Alejandre MD Ordered: CS & ANAC & GS Comments: Collected by Nurse/Unit? Y/N Y Comment: Right eyelid Procedure Result Verified Site Microbiology SAHARA GS (GRAM STAIN) Final 06/12/16 GRAM STAIN RESULT FEW POLYS NO ORGANISMS SEEN SAHARA CULT AEROBIC Preliminary 06/14/16 Organism 1 METHICILLIN RESISTANT S AUREUS COLONY COUNT/QUANTITY SCANT GROWTH METHICILLIN RESISTANT S AUREUS Resistance of staphylococci to OXACILLIN predicts resistance to (a) other beta-lactamase stable penicillins such as cloxacillin and dicloxacillin (b)B-lactam/B-lactamase inhibitor combinations such as augmentin and unasyn, (c)cephems such as Cephalexim and cefuroxime and (d)carbapenems such as imipenem and meropenem.(CLSI 2010 M100 S21) 1. METHICILLIN RESISTANT S AUREUS M.I.C Interp --------- ------ * CEFAZOLIN R * CLINDAMYCIN <=0.25 S * ERYTHROMYCIN >=8 R * LINEZOLID 2 S * OXACILLIN SAHARA >=4 R * RIFAMPIN <=0.5 S * TETRACYCLINE <=1 S * TRIMETHOPRIM/SULFAMETHOXAZOLE <=10 S * VANCOMYCIN 1 S ANAEROBIC CULTURE Preliminary 06/14/16 No ANAEROBES recovered at 48 hours hold for futher observation X-Rays, CTs and MRIs PROCEDURE: CT FACE WITH CONTRAST ([id number]) INDICATIONS: orbital cellulitis TECHNIQUE: After the administration of intravenous contrast, 3.0 mm axial sections acquired from the mid-neck to the frontal sinuses, with coronal reformatting. For radiation dose reduction, the following was used: automated exposure control. COMPARISON: None. FINDINGS: Image quality: Excellent. Soft tissues: There is severe right facial soft tissue swelling, and periorbital edema. On image 39 series 2 possible focal fluid collection measuring 5 mm diameter, versus phlegmon. This is seen anterolateral to and adjacent to the right globe. No retro-orbital fluid collection Vascular: Visualized vascular structures appear patent throughout. Bony vascular foramina and canals appear normal. Bones: Facial bones appear intact, without fractures, erosions, or destruction. Visualized portions of the skull base and auditory canals also appear normal. Sinuses: Paranasal sinuses are aerated without fluid levels, mucosal thickening , or mucoceles. Mastoid air cells are aerated. IMPRESSION: Severe right facial and periorbital soft tissue swelling/cellulitis. Possible small phlegmon versus early/developing abscess adjacent to the right globe as above Assessment & Plan Patient is a 36 year old male that is presenting with orbital cellulitis. Patient had been working when a piece of sawdust went into his eye and since then he has developed an infection. Patient is currently stable Orbital cellulitis and upper eyelid abscess secondary to MRSA status post drainage by Dr. Mcbride. The inflammation is markedly improved - Patient has a recent history of foreign body that is now leading to an infection - Patient was seen by ophthalmology who recommended admission and antibiotics - Patient was started on vancomycin and ceftriaxone and Flagyl initially -Dr. Olivares of infectious disease saw the patient and recommended that the patient be on vancomycin and Unasyn. He also recommended that the patient have a nasal swab for MRSA (which came back positive). -We will continue vancomycin IV for now. However, due to the diarrhea, and marked improvement, and isolation of MRSA, will discontinue Unasyn - Dr Trujillo of ophthalmology has consulted on the patient. Dr. Trujillo saw the patient on 06/13/2016 and again on 06/14/2016. He believed it there is no need for further intervention at this time. He also performed a slit lamp examination and was pleased with the patient's improvement and progress. -We will obtain daily blood work Diarrhea - C. difficile assay was negative - We will add lactobacillus acidophilus - We will discontinue Unasyn DVT ppx via lovenox GI ppx not warranted Disposition: We will discuss with Dr. Olivares tomorrow likely patient will be able to go home on oral antibiotics tomorrow if he continues to improve at the rate he is currently improving. Pain Evaluation: Adequate Pain Control VTE Mechanical Devices: Intermittant Pneumatic CD Resuscitation Status: CPR: Attempt Resuscitation Akash Lepe MD Jun 15, 2016 21:10
[2016-06-16] MEDS: Ampicillin-Sulbactam Inj 3,000 MG in 0.9% Sodium Chloride 100 ML IV SCH (02:37)
--- NOTE | 2016-06-16 02:59 | NUR ---
Activity Patient A&OX3, and pleasant. Patient complains of minimal 2/10 right eye pain, and has denied the need for any pain medication at this time. Patient continues to be independent in room without troubles. Iv in left AC is patent is infusing NS @ 100cchr, with intermittent abx administration. Patient educated to let nurse know is IV site becomes painful or irritated. Patient denies any SOB, or CP. On RA. Bed locked, in low position, and call light is within reach. Patient is currently sleeping and appears comfortable. Will continue care, and continue Q 1 hour checks.
[2016-06-16] MEDS: 0.9% Sodium Chloride 1,000 ML IV SCH ×2 (03:51→10:15)
[2016-06-16 05:38] VITALS: BP 103/62; PULSE 58; RESP 16; O2SAT 99
[2016-06-16 06:47] LABS: EOSINOPHILS % (AUTO) 4.7 % (0-5); Mean Corpuscular Hemoglobin 29.3 pg (27.0-35.0); NEUTROPHILS % (AUTO) 47.9 % (40-74); Platelet Count 232 bil/L (150-400)
[2016-06-16] MEDS: Vancomycin Dose per Pharmacist XX SCH (07:46)
[2016-06-16 08:39] LABS: ERYTHROCYTE SEDIMENTATION RATE 8 mm/hr (0-15)
[2016-06-16] MEDS: Pantoprazole 40 mg ER24 Tablet PO SCH (08:40)
--- NOTE | 2016-06-16 13:35 | PCM.DIMED ---
Discharge Instructions Date of Service Jun 16, 2016 Dates of Hospitalization Jun 11, 2016 at 18:56 Discharge Diagnosis Discharge Diagnosis Right eyelid abscess secondary to MRSA Diet No restrictions Activity No restrictions Call your provider Fever or Chills, Shortness of breath, Bleeding, Chest pain, Vomitting, Excessive diarrhea, Weakness (unilateral), Other (Rash) Patient Instructions Follow-up Provider: Jose Luis Lyles MD Follow-up with PCP in: 1 week Provider: KARY BEAN MD Follow-up in: 1 week Akash Lepe MD Jun 16, 2016 13:34
[2016-06-16] MEDS ORDERED: Lactobacillus Acidophilus PO (13:38)
[2016-06-16] MEDS ORDERED: SULF1TAB7 PO (13:38)
--- NOTE | 2016-06-16 15:00 | NUR ---
DISCHARGE Patient denies pain. Tolerating liquids PO and his diet well. Denies nausea. No emesis noted. + Loose BM. Last one was yesterday. Pt. is negative for Cdiff. Acidophilus was started. Denies SOB. Patient has been ambulating independently in the room. Tolerating activity well. Voiding without any problems. IV saline lock d/cd. Discharge instructions, care notes and prescription was given to the patient and he verbalized understanding. House Wrecker was at the bedside during the discharge. Patient will be discharged to home when his friend comes. (Copy of D/C is in the chart). Addendum: 06/16/16 at 1554 by AJIT SALEH RN DISCHARGE Discharged to home with his friend and all his personal belongings. Addendum: 06/16/16 at 1558 by AJIT SALEH RN MD APPOINTMENT Dr. Lyles and Dr. Trujillo are both under [facility]. Appointment made with Dr. Trujillo for 2016 at 1:[address] Lepe was made aware. Instructed the patient to get a PCP of his choice ([facility]ia [facility]/Residency clinic, etc.) and schedule an appointment for 1 week. House Wrecker at the bedside translating D/C instructions.
--- NOTE | 2016-06-16 18:35 | PROG NOTE ---
[address] [address] PROGRESS NOTE PATIENT: DAVION BLACKMAN : 1980 MR#: [id number] ADMIT: 06/11/2016 JOB ID: [id number] DATE: 06/16/2016 REASON FOR FOLLOWUP: Right orbital cellulitis. INTERVAL HISTORY: Over the weekend, the patient reports his eye symptoms have almost resolved. He still has a little bit of itching and pain but it is very minimal in and around the right eye. He has no fevers, chills, sweats, headache, or sore throat. PHYSICAL EXAMINATION: Reveals a completely afebrile gentleman, in no acute distress. Temp 36.6, pulse 60, respiratory rate 16, blood pressure 103/62. He is in no acute distress, awake, alert and having lunch. His right eye cellulitis is almost resolved. There is still some mild erythema especially medially in the canthus area but essentially normal. Extraocular movements are intact and his vision is normal. No skin rash. No other physical findings. LABORATORIES: Include white count 7000, procalcitonin is negative x2. MRSA was cultured from the eye, interestingly, and this is clindamycin susceptible, Bactrim susceptible and tetracycline susceptible. I have discussed this case in detail with Dr. Lepe today and he has also been in contact with Ophthalmology about this case. IMPRESSION: Right orbital cellulitis secondary to methicillin-resistant Staphylococcus aureus now dramatically improved on appropriate antimicrobial therapy. RECOMMENDATIONS: 1. Discharge on either oral Bactrim at reasonable doses such as two double-strength Bactrim tablets twice a day or doxycycline 100 mg p.o. b.i.d. would be reasonable in this situation, and I have discussed this with Dr. Lepe in great detail. 2. I agree the patient is ready for discharge on either oral trimethoprim sulfamethoxazole or doxycycline. 3. Follow up should be with his primary care or Ophthalmology. 4. ID will go ahead and sign off at this time.
[2016-06-17] MEDS ORDERED: Vancomycin Serum Trough XX ONE (15:00)
--- NOTE | 2016-06-24 14:27 | PCM.DC.MED ---
Discharge Summary Date of Service Jun 16, 2016 Dates of Hospitalization Date of Hospital Admission Jun 11, 2016 at 18:56 Date of Discharge: Jun 16, 2016 Providers: Admitting Physician: Manas Ramirez MD Primary Care Physician: Darian Attending Physician: Manas Ramirez MD Diagnosis at Time of Discharge Diagnosis at Time of Discharge Right eyelid abscess secondary to MRSA Consultations Dr. Bean of Opthalmology and Dr. Olivares of Infectious disease Procedures XRay, CTs & MRIs PROCEDURE: CT FACE WITH CONTRAST ([id number]) INDICATIONS: orbital cellulitis TECHNIQUE: After the administration of intravenous contrast, 3.0 mm axial sections acquired from the mid-neck to the frontal sinuses, with coronal reformatting. For radiation dose reduction, the following was used: automated exposure control. COMPARISON: None. FINDINGS: Image quality: Excellent. Soft tissues: There is severe right facial soft tissue swelling, and periorbital edema. On image 39 series 2 possible focal fluid collection measuring 5 mm diameter, versus phlegmon. This is seen anterolateral to and adjacent to the right globe. No retro-orbital fluid collection Vascular: Visualized vascular structures appear patent throughout. Bony vascular foramina and canals appear normal. Bones: Facial bones appear intact, without fractures, erosions, or destruction. Visualized portions of the skull base and auditory canals also appear normal. Sinuses: Paranasal sinuses are aerated without fluid levels, mucosal thickening , or mucoceles. Mastoid air cells are aerated. IMPRESSION: Severe right facial and periorbital soft tissue swelling/cellulitis. Possible small phlegmon versus early/developing abscess adjacent to the right globe as above Brief History Patient is a 36 year old male that is presenting with a 3 day history of eye lid swelling, blurry vision and difficulty seeing. 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 Patient tried rubbing it out however it did not do much in terms of improving his symptoms. Patient noticed that it was becoming larger and more painful. Patient went to urgent care who prescribed him with erythromycin ointment, he applied it as directions stated however the patient was not having any resolution and in fact his eye was becoming more swollen. Patient came to the ED and fromt here the patient was evaluated by Dr Lyles (optho), who assessed the patient to have orbital cellulitis and eyelid abscess. Patient is currently stable and has no complaints. Patient was admitted to the hospitalist service.. Hospital Course Patient is a 36 year old male that is presenting with orbital cellulitis. Patient had been working when a piece of sawdust went into his eye and since then he has developed an infection. Patient was admitted to the hospitalist service. Orbital cellulitis and upper eyelid abscess secondary to MRSA status post drainage by Dr. Mcbride. The inflammation is markedly improved - Patient has a recent history of foreign body that is now leading to an infection - Patient was seen by ophthalmology who recommended admission and antibiotics - Patient was started on vancomycin and ceftriaxone and Flagyl initially -Dr. Olivares of infectious disease saw the patient and recommended that the patient be on vancomycin and Unasyn. He also recommended that the patient have a nasal swab for MRSA (which came back positive). -We was continued on vancomycin IV. However, due to the diarrhea, and marked improvement, and isolation of MRSA, Unasyn was discontinued. - Dr Bean of ophthalmology has consulted on the patient. Dr. Bean saw the patient on 06/13/2016 and again on 06/14/2016. He believed it there is no need for further intervention at this time. He also performed a slit lamp examination and was pleased with the patient's improvement and progress. -We will obtain daily blood work Diarrhea - C. difficile assay was negative - We will add lactobacillus acidophilus - We will discontinue Unasyn DVT ppx via lovenox GI ppx not warranted Disposition: Patient is to be discharged home today on oral Bactrim for seven days. Exam Exam General: Patient is in no apparent distress. HEENT: Head is atraumatic normocephalic. Eyes: The right periorbital region and eyelid inflammation is almost completely resolved. Pupils are equally round and reactive to light and accommodation. Extraocular muscles are intact. Sclera continue to be less inflamed and injected. Anicteric. Subconjunctival mucosa is less inflamed and pink. Ears and nose are unremarkable. Oropharynx: There is no mucosal lesions, there is no thrush, there is no pharyngitis. Neck: Is supple, there are no nodes, or masses or tenderness. Chest: Is clear to auscultation and percussion. There are no rales, rhonchi, wheezes or rubs. Heart: Rate, rhythm is regular. There is no murmur, rub or gallop. Abdomen: Good bowel sounds are present. Abdomen is soft, nontender, no organomegaly or masses were appreciated. Extremities: Are symmetrical and well perfused. There is no edema, there is no cellulitis, no rash. Neurologic: There are no focal neurological deficits. Cranial nerves II through XII are intact. There are no sensory or motor deficits. Psychiatric: Patients mood is calm and shows no sign of agitation. Genital: Deferred Rectal: Deferre Test 06/15/16 13:20 06/16/16 05:55 Vancomycin Level Trough 10.0mcg/mL White Blood Count 7.0th/mm3 (3.8-10.1) Red Blood Count 4.84mil/mm3 (4.40-5.80) Hemoglobin 14.2g/dL (13.8-17.2) Hematocrit 41.6% (41.0-50.0) Mean Corpuscular Volume 86.0fL (81-100) Mean Corpuscular Hemoglobin 29.3pg (27.0-35.0) Mean Corpuscular Hemoglobin Concent 34.1% (32.0-37.0) Red Cell Distribution Width 12.9% (12.3-15.4) Platelet Count 232bil/L (150-400) Neutrophils (%) (Auto) 47.9% (40-74) Lymphocytes (%) (Auto) 35.0% (14-46) Monocytes (%) (Auto) 9.0% (4-12) Eosinophils (%) (Auto) 4.7% (0-5) Basophils (%) (Auto) 1.0% (0-3) Erythrocyte Sedimentation Rate 8mm/hr (0-15) Sodium Level 144mEq/L (134-144) Potassium Level 4.1mEq/L (3.5-5.2) Chloride Level 103mEq/L (97-108) Carbon Dioxide Level 29mmol/L (18-29) Blood Urea Nitrogen 13mg/dL (6-20) Creatinine 0.74mg/dL (0.76-1.27) Estimat Glomerular Filtration Rate 128mL/min (>59) Glucose Level 75mg/dL (60-99) Calcium Level 9.1mg/dL (8.5-10.1) Magnesium Level 2.0mg/dL (1.6-2.6) Total Bilirubin 0.3mg/dL (0.0-1.2) Aspartate Amino Transf (AST/SGOT) 63U/L (0-50) Alanine Aminotransferase (ALT/SGPT) 75U/L (0-44) Alkaline Phosphatase 85U/L (25-150) C-Reactive Protein 0.2mg/dL (0.0-0.5) Total Protein 6.7g/dL (6.4-8.4) Albumin 4.1g/dL (3.4-5.0) Procalcitonin < 0.05ng/mL (See Comment) Microbiology Results Name: DAVION BLACKMAN Age/Sex: 36/M Attend Dr: Manas Ramirez MD Acct: [id number] Unit: [id number] Status: ADM IN [place] [facility] [place]06/11/[place] Disch: Specimen: [id number] Collected: 06/12/16 Status: COMP Req#: [id number] Received: 06/12/16 Source: NOSE Sp Desc : GEL SWAB Subm Dr: Sky Olivares MD Ordered: MRSAC Comments: Collected by Nurse/Unit? Y/N Y Procedure Result Verified Site Microbiology SAHARA CULT NASAL MRSA SCREEN Final 06/14/16 Organism 1 SCREEN POSITIVE FOR MRSA Specimen: [id number] Collected: 06/11/16 Status: RES Req#: [id number] Received: 06/12/16 Source: DRAINAGE Sp Desc : Subm Dr: Maciej Alejandre MD Ordered: CS & ANAC & WILBER Comments: Collected by Nurse/Unit? Y/N Y Comment: Right eyelid Procedure Result Verified Site Microbiology SAHARA GS (GRAM STAIN) Final 06/12/16 GRAM STAIN RESULT FEW POLYS NO ORGANISMS SEEN SAHARA CULT AEROBIC Preliminary 06/14/16 Organism 1 METHICILLIN RESISTANT S AUREUS COLONY COUNT/QUANTITY SCANT GROWTH METHICILLIN RESISTANT S AUREUS Resistance of staphylococci to OXACILLIN predicts resistance to (a) other beta-lactamase stable penicillins such as cloxacillin and dicloxacillin (b)B-lactam/B-lactamase inhibitor combinations such as augmentin and unasyn, (c)cephems such as Cephalexim and cefuroxime and (d)carbapenems such as imipenem and meropenem.(CLSI 2010 M100 S21) 1. METHICILLIN RESISTANT S AUREUS M.I.C Interp --------- ------ * CEFAZOLIN R * CLINDAMYCIN <=0.25 S * ERYTHROMYCIN >=8 R * LINEZOLID 2 S * OXACILLIN SAHARA >=4 R * RIFAMPIN <=0.5 S * TETRACYCLINE <=1 S * TRIMETHOPRIM/SULFAMETHOXAZOLE <=10 S * VANCOMYCIN 1 S ANAEROBIC CULTURE Preliminary 06/14/16 No ANAEROBES recovered at 48 hours hold for futher observation Discharge Medications Discharge Medications ([Lactobacillus Acidophilus]) 1 TABLET TABLET 2 TABLET PO PCHS Prescribed by: BOB LEPE MD Erythromycin Ophth Oint (Erythromycin Ophth Oint) 3.5 Gm Oint...g. 1 APPL OD TID (Reported) Sulfamethoxazole/Trimeth 800-160 mg (Bactrim DS) 1 Each Tablet 1 TABLET PO Q12H Prescribed by: BOB LEPE MD Followup Plan Disposition: Patient is being discharged home. Discharge Diet: No restrictions Discharge Activity: No restrictions Follow-up Provider: Jose Luis Lyles MD Follow-up with PCP in: 1 week Provider: KARY BEAN MD Follow-up in: 1 week Time spent Time taken to discharge this patient was over 30 minutes, over half of which was involved in counseling and coordination of care. Akash Lepe MD Jun 24, 2016 14:27
== END 2016-06-16 15:17 | disposition home or self-care (01) | DRG 125 ==
LOC: SED 18:43 → OSC 18:56
PROVIDERS: ADMIT Internal Medicine; ATTEND Internal Medicine
DX: H00.033 Abscess of eyelid right eye, unspecified eyelid (principal); H05.011 Cellulitis of right orbit; B95.62 Methicillin resistant Staphylococcus aureus infection as the cause of diseases classified elsewhere